=== PATIENT | male | born 1980 | race Caucasian/White ===

== ENCOUNTER 2018-08-15 22:45 | Emergency (ER) | payer OTHER ==
[2018-08-15] MEDS ORDERED: MORPHINE SULFATE 10 MG/ML INJ IV ONE (23:39)
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
[2018-08-16 00:33] LABS: ABSOLUTE BASOPHILS # (AUTO) 0.1 10^3/uL (0.0-0.2); ABSOLUTE EOSINOPHILS # (AUTO) 0.2 10^3/uL (0.0-0.6); ABSOLUTE LYMPHOCYTES (AUTO) 2.9 10^3/uL (0.5-4.7); ABSOLUTE MONOCYTES (AUTO) 0.7 10^3/uL (0.1-1.4); BASOPHILS % (AUTO) 1.1 % (0-2); EOSINOPHILS % (AUTO) 2.6 % (0-6); HEMATOCRIT 39.7 % (37.9-51.0); LYMPHOCYTES % (AUTO) 36.9 % (13-45); MEAN CORPUSCULAR HEMOGLOBIN 31.1 pg (27.0-33.4); MEAN CORPUSCULAR HGB CONC 35.2 g/dL (32.0-36.0); MEAN CORPUSCULAR VOLUME 88 fl (80-97); MONOCYTES % (AUTO) 9.3 % (3-13); PLATELET COUNT 245 10^3/uL (150-450); RED CELL DISTRIBUTION WIDTH 12.9 % (11.5-14.0); SEGMENTED NEUTROPHILS % (AUTO) 50.1 % (42-78); TOTAL CELLS COUNTED % (AUTO) 100 %; WHITE BLOOD COUNT 7.9 10^3/uL (4.0-10.5)
[2018-08-16 00:47] LABS: ALANINE AMINOTRANSFERASE 26 U/L (21-72); ALBUMIN 4.5 g/dL (3.5-5.0); ALKALINE PHOSPHATASE 69 U/L (38-126); ANION GAP 13 (5-19); ASPARTATE AMINO TRANSFERASE 23 U/L (17-59); BILIRUBIN,DIRECT 0.2 mg/dL (0.0-0.4); BILIRUBIN,TOTAL 0.4 mg/dL (0.2-1.3); BLOOD UREA NITROGEN 26 mg/dL (7-20); CALCIUM 9.5 mg/dL (8.4-10.2); CARBON DIOXIDE 29 mmol/L (22-30); CHLORIDE 101 mmol/L (98-107); GLUCOSE 118 mg/dL (75-110); SODIUM 143.3 mmol/L (137-145); TOTAL PROTEIN 7.4 g/dL (6.3-8.2)
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
[2018-08-16 01:43] VITALS: BP 124/65
--- NOTE | 2018-08-17 10:22 | EKG REPORT ---
SEVERITY:- NORMAL ECG - SINUS RHYTHM : Confirmed by: Tamera Cleaning 17-Aug-2018 10:21:39
== END 2018-08-16 01:44 | disposition home or self-care (01) ==
LOC: ER 22:45
DX: S16.1XXA Strain of muscle, fascia and tendon at neck level, initial encounter (principal); S46.812A Strain of other muscles, fascia and tendons at shoulder and upper arm level, left arm, initial encounter; R07.89 Other chest pain; R07.9 Chest pain, unspecified; R10.30 Lower abdominal pain, unspecified; M54.9 Dorsalgia, unspecified; G89.29 Other chronic pain; V89.2XXA Person injured in unspecified motor-vehicle accident, traffic, initial encounter
CPT/HCPCS: 93005; 99284; 96374; 36415; 85025; 80053; 84484; 71260; 72125; 72128; 72131; 74177; 93010; L0120; J2270

== ENCOUNTER → 2019-03-02 | Outpatient (CLI) | payer OTHER ==
--- NOTE | 2019-03-02 10:01 | RADIOLOGY REPORT (SQ) ---
EXAM DESCRIPTION: MRI RT UPPER JOINT WITHOUT COMPLETED DATE/TIME: 03/02/2019 9:47 am REASON FOR STUDY: PAIN IN RIGHT SHOULDER COMPARISON: None. TECHNIQUE: Right shoulder images acquired and stored on PACS. Multiplanar imaging to include fat sen sitive sequences such as T1, water sensitive sequences such as FST2/STIR, cartilage sensitive sequenc es such as FSPD/gradient-echo sequences. LIMITATIONS: None. FINDINGS: BONE MARROW AND CORTEX: No worrisome bone lesions or marrow replacement. No occult fractur es. JOINT OR BURSAL EFFUSION: No significant joint or bursal fluid. No suggestion of loose bodies. GLENO-HUMERAL ARTICULATION: Normal articulation. No subluxation. No cystic change. No osteophytes or cartilage loss. ACROMION AND AC JOINT: Mild degenerative overgrowth. ROTATOR CUFF AND INTERVAL: Focal high-grade tear along supraspinatus insertion. This looks essential ly high-grade. No significant retraction or atrophy. Tendinosis in the cuff otherwise. No rotator interval tear. No rotator interval thickening to suggest adhesive capsulitis. LABRUM AND BICEPS LABRAL COMPLEX: Intact. No labral tear. Intra-articular long-head biceps tendon n ormal. Distal biceps in normal location in bicipital groove. REMAINDER OF LABRUM AND IGHL : No gross tear or paralabral cyst formation. Labral evaluation is less than optimal without joint distention. No thickening of IGHL to suggest adhesive capsulitis. PERIARTICULAR AND ADJACENT SOFT TISSUES: No masses or abnormal nodes. OTHER: No other significant finding. IMPRESSION: Focal supraspinatus insertion tear, full-thickness without retraction or atrophy. TECHNICAL DOCUMENTATION: JOB ID: [id number] [employer]- All Rights Reserved Reading location - IP/workstation name: [email or web address]
== END ==
LOC: RAD 09:07
PROVIDERS: ATTEND Family Medicine
DX: M25.511 Pain in right shoulder (principal)

== ENCOUNTER 2019-04-03 21:24 | Emergency (ER) | payer SELFPAY ==
--- NOTE | 2019-04-03 23:09 | ER Document Report ---
ED Medical Screen (RME) - General Chief Complaint: Shoulder Pain Stated Complaint: SHOULDER PAIN Time Seen by Provider: 04/03/19 22:57 Primary Care Provider: LARRY PARHAM MD [Primary Care Provider] - Follow up as needed Notes: Patient is a 38-year-old male who presents the emergency department with right shoulder/chest pain. He had a inguinal hernia surgery this morning. He is that he was at home on his couch and started to have his shoulder and chest pain. Describes the pain as a stabbing pain right under and in his clavicle area. He also states that when he takes a deep breath he feels the pain. Denies any smoking. Exam: S1-S2. Patient able to lift arm, but has soreness. Able to fully abduct that shoulder. I have greeted and performed a rapid initial assessment of this patient. A comprehensive ED assessment and evaluation of the patient, analysis of test results and completion of medical decision making process will be conducted by an additional ED providers. TRAVEL OUTSIDE OF THE [place] IN LAST 30 DAYS: No - Related Data Allergies/Adverse Reactions: tramadol Allergy (Verified 08/15/18 22:56) Past Medical History - Social History Frequency of alcohol use: None Drug Abuse: None Renal/ Medical History: Denies: Hx Peritoneal Dialysis Musculoskeltal Medical History: Reports Hx Arthritis Past Surgical History: Reports: Hx Abdominal Surgery - hernia repair, Hx Orthopedic Surgery - left shoulder repair Physical Exam - Vital signs Vitals: Temp Pulse Resp BP Pulse Ox 97.8 F 115 H 16 156/97 H 93 04/03/19 21:40 04/03/19 21:40 04/03/19 21:40 04/03/19 21:40 04/03/19 21:40 Course - Vital Signs Vital signs: Temp Pulse Resp BP Pulse Ox 97.8 F 115 H 16 156/97 H 93 04/03/19 21:40 04/03/19 21:40 04/03/19 21:40 04/03/19 21:40 04/03/19 21:40 Doctor's Discharge - Discharge Referrals: LARRY PARHAM MD [Primary Care Provider] - Follow up as needed
[2019-04-04] MEDS ORDERED: MORPHINE SULFATE 10 MG/ML INJ IV ONE ×2 (00:32→03:47)
[2019-04-04 00:37] LABS: ABSOLUTE LYMPHOCYTES (AUTO) 2.9 10^3/uL (0.5-4.7); ABSOLUTE MONOCYTES (AUTO) 1.3 10^3/uL (0.1-1.4); ABSOLUTE NEUT (AUTO) 13.1 10^3/uL (1.7-8.2); BASOPHILS % (AUTO) 0.2 % (0-2); EOSINOPHILS % (AUTO) 0.1 % (0-6); HEMATOCRIT 41.9 % (37.9-51.0); HEMOGLOBIN 14.4 g/dL (13.5-17.0); LYMPHOCYTES % (AUTO) 16.9 % (13-45); MEAN CORPUSCULAR HEMOGLOBIN 29.7 pg (27.0-33.4); MEAN CORPUSCULAR HGB CONC 34.3 g/dL (32.0-36.0); MEAN CORPUSCULAR VOLUME 87 fl (80-97); MONOCYTES % (AUTO) 7.3 % (3-13); PLATELET COUNT 316 10^3/uL (150-450); RED BLOOD COUNT 4.83 10^6/uL (4.35-5.55); RED CELL DISTRIBUTION WIDTH 12.7 % (11.5-14.0); SEGMENTED NEUTROPHILS % (AUTO) 75.5 % (42-78); TOTAL CELLS COUNTED % (AUTO) 100 %; WHITE BLOOD COUNT 17.3 10^3/uL (4.0-10.5)
[2019-04-04 00:42] LABS: INTERNATIONAL RATION (INR) 0.98; PROTHROMBIN TIME 13.5 SEC (11.4-15.4)
[2019-04-04 00:43] LABS: PARTIAL THROMBOPLASTIN TIME 27.5 SEC (23.5-35.8)
[2019-04-04 00:53] LABS: ALANINE AMINOTRANSFERASE 23 U/L (21-72); ALBUMIN 4.6 g/dL (3.5-5.0); ALKALINE PHOSPHATASE 71 U/L (38-126); ANION GAP 11 (5-19); ASPARTATE AMINO TRANSFERASE 17 U/L (17-59); BILIRUBIN,DIRECT 0.3 mg/dL (0.0-0.4); BILIRUBIN,TOTAL 0.5 mg/dL (0.2-1.3); BLOOD UREA NITROGEN 19 mg/dL (7-20); CALCIUM 9.8 mg/dL (8.4-10.2); CARBON DIOXIDE 30 mmol/L (22-30); CHLORIDE 98 mmol/L (98-107); GLUCOSE 113 mg/dL (75-110); SODIUM 138.7 mmol/L (137-145); TOTAL PROTEIN 7.8 g/dL (6.3-8.2)
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
--- NOTE | 2019-04-04 03:48 | ER Document Report ---
ED General - General Chief Complaint: Shoulder Pain Stated Complaint: SHOULDER PAIN Time Seen by Provider: 04/03/19 22:57 Primary Care Provider: LARRY PARHAM MD [Primary Care Provider] - Follow up in 1 week Notes: Patient is a 38-year-old male who presents the emergency department with right shoulder/chest pain. He had a inguinal hernia surgery this morning. He is that he was at home on his couch and started to have his shoulder and chest pain. Describes the pain as a stabbing pain right under and in his clavicle area. He also states that when he takes a deep breath he feels the pain. Denies any smoking. Denies any travel, except for his surgery at [place], which is about 3 hours away. TRAVEL OUTSIDE OF THE [place] IN LAST 30 DAYS: No - Related Data Allergies/Adverse Reactions: tramadol Allergy (Verified 08/15/18 22:56) Past Medical History - Social History Smoking Status: Never Smoker Frequency of alcohol use: None Drug Abuse: None Family History: Reviewed & Not Pertinent Patient has suicidal ideation: No Patient has homicidal ideation: No Renal/ Medical History: Denies: Hx Peritoneal Dialysis Musculoskeletal Medical History: Reports Hx Arthritis Past Surgical History: Reports: Hx Abdominal Surgery - hernia repair, Hx Orthopedic Surgery - left shoulder repair Review of Systems - Review of Systems Notes: REVIEW OF SYSTEMS: CONSTITUTIONAL : Denies recent illness. Denies recent unintentional weight loss. Denies fever, chills, or sweats. EENT: Denies eye, ear, throat, or mouth pain, discharge, or symptoms. Denies nasal or sinus congestion. CARDIOVASCULAR: See HPI RESPIRATORY: See HPI GASTROINTESTINAL: Denies nausea, vomiting, and diarrhea. Denies abdominal pain. Denies constipation. GENITOURINARY: Denies difficulty urinating, burning, blood in urine, urgency or frequency. MUSCULOSKELETAL: See HPI SKIN: Denies rash, itchiness, or lesions HEMATOLOGIC : Denies easy bruising or bleeding. LYMPHATIC: Denies swollen, painful, enlarged glands. NEUROLOGICAL: Denies no numbness or tingling denies weakness. Denies headache. Denies altered mental status. Denies alteration in speech. PSYCHIATRIC: Denies stress, anxiety, alteration in sleep patterns, or depr ession. All other systems reviewed and negative. Physical Exam - Vital signs Vitals: Temp Pulse Resp BP Pulse Ox 97.8 F 115 H 16 156/97 H 93 04/03/19 21:40 04/03/19 21:40 04/03/19 21:40 04/03/19 21:40 04/03/19 21:40 - Notes Notes: PHYSICAL EXAMINATION: GENERAL: Appears well, healthy, well-nourished, no acute distress. HEAD: Normocephalic, atraumatic. EYES: PERRL, conjunctiva normal, all extraocular movements intact, sclera nonicteric ENT: Moist mucous membranes. NECK: Supple, no noticeable swelling, redness, rash. Normal range of motion. LUNGS: Equal breath sounds bilaterally and clear to auscultation. No wheezes rales or rhonchi. CARDIOVASCULAR: S1-S2, regular rate, regular rhythm. Radial pulses 2+, normal. ABDOMEN: Normoactive bowel sounds. Soft, nontender, no guarding, no rebound tenderness, and no masses palpated. EXTREMITIES: Normal strength and range of motion, no pitting or edema. No cyanosis. NEUROLOGICAL: Moves all extremities upon command. Strength 5/5 in all extremities. PSYCH: Normal mood, normal affect. SKIN: Warm, dry. No rash, lesions, ulcerations noted. Normal skin turgor. Course - Re-evaluation Re-evalutation: 04/04/19 02:00 He does have a leukocytosis of 17,000, but he did recently have surgery, so this is an actual normal finding. His chemistries are unremarkable. Coagulation studies are also unremarkable. 04/04/19 03:19 I received a phone call from Dr. Corey, the radiologist and we discussed the patient's CT. She said she did not see any clots at that time. She does note that there is some free air in his abdomen, consistent with his recent surgery. I agree with this. I spoke with the patient and gave him the results of his CT and his labs. I do not suspect patient has any life-threatening etiology at this time. I advised him to continue taking his pain medication at home. He will follow-up with his primary care provider in regards to this visit. He is in agreement with this plan. Verbal discharge instructions were given to the patient. They verbalized understanding. They are stable for discharge. - Vital Signs Vital signs: Temp Pulse Resp BP Pulse Ox 98.4 F 84 16 154/72 H 93 04/04/19 05:00 04/04/19 05:00 04/04/19 05:00 04/04/19 05:00 04/03/19 21:40 - Laboratory Result Diagrams: 04/03/19 23:40 04/03/19 23:40 Laboratory results interpreted by me: 04/03/19 04/03/19 23:40 23:40 WBC 17.3 H Absolute Neutrophils 13.1 H Glucose 113 H Discharge - Discharge Clinical Impression: Right-sided chest pain Right shoulder pain Qualifiers: Chronicity: acute Qualified Code(s): M25.511 - Pain in right shoulder Condition: Stable Disposition: HOME, SELF-CARE Additional Instructions: You are seen today in the emergency department for right-sided chest pain and shoulder pain. Your CT was normal. The pain you are having may be due to the air that is in your abdomen from the surgery. Please follow-up with your primary care provider in the next week if you continue to have pain. Referrals: LARRY PARHAM MD [Primary Care Provider] - Follow up in 1 week
[2019-04-04 05:02] VITALS: BP 154/72
--- NOTE | 2019-04-04 08:17 | EKG REPORT ---
SEVERITY:- BORDERLINE ECG - SINUS RHYTHM PROBABLE LEFT ATRIAL ABNORMALITY : Confirmed by: Yaw Amin MD 04-Apr-2019 08:17:15
== END 2019-04-04 05:00 | disposition home or self-care (01) ==
LOC: ER 21:24
DX: M25.511 Pain in right shoulder (principal); R07.1 Chest pain on breathing; Z98.890 Other specified postprocedural states; Z88.5 Allergy status to narcotic agent
CPT/HCPCS: 93005; 96376; 99284; 96374; 36415; 85025; 85610; 85730; 80053; 71260; 93010; J2270